=== PATIENT | female | born 1990 | race Hispanic/Latino ===

== ENCOUNTER 2022-03-27 07:48 | Outpatient (CLI) | payer OTHER | END 2022-03-27 07:49 | disposition home or self-care (01) | LOC: CSHLAB 07:48 | PROVIDERS: ATTEND Emergency Medicine | DX: Z20.822 Contact with and (suspected) exposure to COVID-19 (principal) | CPT/HCPCS: 87811 ==

== ENCOUNTER 2022-03-29 19:00 | Inpatient (IN) | payer MEDICAID, OTHER ==
[2022-03-30] MEDS ORDERED: Ondansetron PF 4 MG/2 ML Vial IVP PRN ×3 (02:41→14:57)
[2022-03-30] MEDS ORDERED: Methylergonovine 0.2 MG/ML VIAL IM PRN (02:41)
[2022-03-30] MEDS ORDERED: Carboprost 250 MCG/ML AMP IM PRN (02:41)
[2022-03-30] MEDS ORDERED: Butorphanol Tartrate 1 MG/ML VIAL SLOW IVP PRN (02:41)
[2022-03-30] MEDS ORDERED: Diphenoxylate HCl/Atropine Tablet PO PRN (02:41)
[2022-03-30] MEDS ORDERED: hydrALAZINE 20 MG/ML VIAL SLOW IVP PRN ×2 (02:41→14:57)
[2022-03-30] MEDS ORDERED: Lidocaine 1% (PF) 30 ML VIAL SC PRN (02:41)
[2022-03-30] MEDS ORDERED: Misoprostol 200 MCG TAB PR PRN (02:41)
[2022-03-30] MEDS ORDERED: Promethazine HCl 25 MG/ML VIAL IM PRN ×2 (02:41→10:53)
[2022-03-30] MEDS ORDERED: Acetaminophen 500 MG TAB PO PRN (02:41)
[2022-03-30 02:55] VITALS: BMI 30.5
[2022-03-30 02:55] LABS: Hemoglobin 10.6 g/dL (12.0-15.5); Mean Corpuscular HGB CONC 33.7 g/dL (32.0-36.0); Mean Corpuscular Hemoglobin 27.3 pg (27.0-33.0); Mean Corpuscular Volume 81.2 fl (81.6-98.3); Platelet Count 139 10x3/uL (150-450); RBC Distribution Width 14.4 % (11.5-14.5); Red Blood Cell (RBC) Count 3.88 10x6/uL (3.90-5.03); White Blood Cell (WBC) Count 6.8 10x3/uL (3.5-10.5)
[2022-03-30 03:26] LABS: Syphilis Antibody Nonreactive (Nonreactive); Syphilis Antibody Index 0.04 S/CO (<1.00 Non-Reactive)
[2022-03-30 03:27] LABS: Hep B Surf Ag Non-Reactive S/CO (NonReactive)
[2022-03-30] MEDS: Misoprostol 100 MCG TAB VAG SCH ×4 (03:41→13:46)
[2022-03-30] MEDS: Lactated Ringer's 1,000 ML IV SCH ×2 (04:00→10:50)
[2022-03-30] MEDS ORDERED: Bupivacaine 0.25% HCL 30 ML VIAL ONE (08:00)
[2022-03-30] MEDS: NS w/ Oxytocin 30 units 500 ML IV SCH ×2 (08:28→13:45)
[2022-03-30] MEDS ORDERED: Fentanyl 2 mcg/Bup 0.1% Cadd 100 ML ONE (09:52)
[2022-03-30] MEDS ORDERED: ePHEDrine Sulfate 50 MG/10 ML VIAL SLOW IVP PRN (10:53)
[2022-03-30] MEDS ORDERED: Lactated Ringer's 500 ML IV PRN (10:53)
[2022-03-30] MEDS ORDERED: Moisturizing Cream (Eucerin) 113 GM JAR TOP PRN (10:53)
[2022-03-30] MEDS ORDERED: diphenhydrAMINE 50 MG/ML VIAL IVP PRN (10:53)
[2022-03-30] MEDS ORDERED: Acetaminophen 325 MG TAB PO PRN (10:53)
[2022-03-30] MEDS ORDERED: Naloxone HCl 0.4 mg/ml Vial IVP PRN ×2 (10:53)
[2022-03-30] MEDS ORDERED: Communication Order-Pharmacy FS SCH (11:00)
[2022-03-30] MEDS ORDERED: Fentanyl 2 mcg/Bupivacaine 0.1% Cassette 100 ML EPIDURAL SCH (11:00)
[2022-03-30] MEDS ORDERED: Boostrix 0.5 ML (Tdap) VIAL IM ONE (14:57)
[2022-03-30] MEDS ORDERED: diphenhydrAMINE 25 MG CAP PO PRN (14:57)
[2022-03-30] MEDS ORDERED: Lanolin Ointment 7 GM TUBE TOP PRN (14:57)
[2022-03-30] MEDS ORDERED: Milk Of Magnesia 30 ML UDCUP PO PRN (14:57)
[2022-03-30] MEDS ORDERED: Bisacodyl 10 MG SUPP PR PRN (14:57)
[2022-03-30] MEDS ORDERED: Ibuprofen 800 MG TAB PO SCH ×2 (15:30→16:00)
[2022-03-30] MEDS: Ferrous Sulfate 325 MG TAB PO SCH (16:57)
[2022-03-30] MEDS: Docusate 100 MG CAP PO SCH (20:16)
[2022-03-31] MEDS: Ibuprofen 800 MG TAB PO SCH ×3 (00:09→16:35)
[2022-03-31 07:32] LABS: #Basophils 0.1 10x3/uL (0.0-0.2); #Eosinphils 0.2 10x3/uL (0.0-0.5); #Monocytes 0.5 10x3/uL (0.0-1.1); #Neutrophils 4.8 10x3/uL (1.5-8.4); %Basophils 0.7 % (0.0-2.0); %Eosinophils 2.2 % (0.0-6.0); %Lymphocytes 23.9 % (18.0-47.0); %Monocytes 7.1 % (0.0-10.0); %Neutrophils 65.3 % (40.0-75.0); Hemoglobin 9.9 g/dL (12.0-15.5); Mean Corpuscular HGB CONC 32.4 g/dL (32.0-36.0); Mean Corpuscular Hemoglobin 27.3 pg (27.0-33.0); Mean Corpuscular Volume 84.3 fl (81.6-98.3); Mean Platelet Volume 12.6 fl (7.4-10.4); Platelet Count 132 10x3/uL (150-450); RBC Distribution Width 14.2 % (11.5-14.5); Red Blood Cell (RBC) Count 3.63 10x6/uL (3.90-5.03); White Blood Cell (WBC) Count 7.3 10x3/uL (3.5-10.5)
[2022-03-31] MEDS: Docusate 100 MG CAP PO SCH ×2 (08:53→21:15)
[2022-03-31] MEDS: Prenatal Vitamin 1 TAB PO SCH (08:53)
[2022-03-31] MEDS: Ferrous Sulfate 325 MG TAB PO SCH ×2 (09:59→17:09)
[2022-04-01] MEDS: Ibuprofen 800 MG TAB PO SCH ×2 (00:12→08:39)
[2022-04-01] MEDS: Prenatal Vitamin 1 TAB PO SCH (08:40)
[2022-04-01] MEDS: Docusate 100 MG CAP PO SCH (08:40)
[2022-04-01] MEDS: Ferrous Sulfate 325 MG TAB PO SCH (08:40)
[2022-04-01 11:41] VITALS: BP 106/71; TEMP 98.1
== END 2022-04-01 12:05 | disposition home or self-care (01) | DRG 807 ==
LOC: CSHLD 03-30 01:46 → CSHPP 03-30 15:10
PROVIDERS: ADMIT Emergency Medicine; ATTEND Emergency Medicine
PROC: 10E0XZZ Delivery of Products of Conception, External Approach (ICD-10-PCS; principal; 2022-03-30)
PROC: 3E0334Z Introduction of Serum, Toxoid and Vaccine into Peripheral Vein, Percutaneous Approach (ICD-10-PCS; 2022-03-30)
PROC: 10907ZC Drainage of Amniotic Fluid, Therapeutic from Products of Conception, Via Natural or Artificial Opening (ICD-10-PCS; 2022-03-30)
DX: O26.893 Other specified pregnancy related conditions, third trimester (principal); Z37.0 Single live birth; Z67.41 Type O blood, Rh negative; Z3A.39 39 weeks gestation of pregnancy
CPT/HCPCS: 36415; 85025; 85027; 85461; 86780; 86850; 86870; 86900; 86901; 87340; 90384; 96372; J2590; J7120; S0020